=== PATIENT | male | born 1950 | race Caucasian/White ===

== ENCOUNTER 2021-06-12 14:29 | Emergency (ER) | payer MEDICARE ==
[~2021-06-12] VITALS: Ht 185.4 cm; Wt 95.5 kg
[2021-06-12 14:31] VITALS: TEMP 97.6
[2021-06-12 16:23] VITALS: BP 153/80; PULSE 70
== END 2021-06-12 16:23 | disposition short-term general hospital (02) ==
LOC: COL.ER 14:29
DX: S02.91XA Unspecified fracture of skull, initial encounter for closed fracture (principal); S06.6X1A Traumatic subarachnoid hemorrhage with loss of consciousness of 30 minutes or less, initial encounter; S06.5X1A Traumatic subdural hemorrhage with loss of consciousness of 30 minutes or less, initial encounter; Z20.822 Contact with and (suspected) exposure to COVID-19; W19.XXXA Unspecified fall, initial encounter; Y93.67 Activity, basketball
CPT/HCPCS: J1953; J2405; J3010; J7050

== ENCOUNTER → 2023-01-10 | Outpatient (CLI) | payer MEDICARE ==
[~2023-01-10] MED LIST: B-12 500 MCG PO; GLUCOPHAGE1000 MG PO; IMDUR 60MG60 MG/TAB PO; KEPPRA1000 MG PO; LANTUS100 U/ML SQ; LEXAPRO 10MG10 MG PO; LIPITOR 40MG TA40 MG PO; NITROSTAT0.4 MG/TAB SL; PROTONIX 40MG T40 MG PO; REMERON 15M15 MG/TA1 PO; SYNTHROID0.05 MG/TA PO; TOPROL XL 25MG25 MG PO
== END ==
LOC: DIA.ED 10:32
DX: E11.59 Type 2 diabetes mellitus with other circulatory complications (principal); Z79.4 Long term (current) use of insulin; I10 Essential (primary) hypertension; E78.5 Hyperlipidemia, unspecified
CPT/HCPCS: G0108

== ENCOUNTER 2023-02-23 13:04 | Outpatient (RCR) | payer MEDICARE | END 2023-02-24 | disposition home or self-care (01) | LOC: COL.CR | DX: Z48.812 Encounter for surgical aftercare following surgery on the circulatory system (principal); Z98.61 Coronary angioplasty status ==

== ENCOUNTER 2023-03-18 12:01 | Outpatient (RCR) | payer MEDICARE | END 2023-03-27 | disposition home or self-care (01) | LOC: COL.CR | DX: Z48.812 Encounter for surgical aftercare following surgery on the circulatory system (principal); Z98.61 Coronary angioplasty status ==

== ENCOUNTER 2023-03-30 15:34 | Outpatient (RCR) | payer MEDICARE | END 2023-04-01 15:05 | disposition still patient (30) | LOC: COL.CR 15:34 | DX: Z48.812 Encounter for surgical aftercare following surgery on the circulatory system (principal); Z98.61 Coronary angioplasty status ==

== ENCOUNTER 2023-11-21 08:33 | Day surgery (SDC) | payer MEDICARE ==
[~2023-11-21] VITALS: Ht 185.4 cm; Wt 86.2 kg
[~2023-11-21 08:33] MED LIST changes: +LR 1,000 ML IV SCH; +Ondansetron 4 MG/2 ML VIAL IV PRN
[2023-11-21 08:59] VITALS: BP 129/83; PULSE 67; TEMP 97.8
[2023-11-21] MEDS ORDERED: VITAMIN D 50,1.25 MG PO (09:04)
[2023-11-21] MEDS ORDERED: ARICEPT10 MG PO (09:06)
[2023-11-21] MEDS ORDERED: OZEMPIC0.25 MG/02 SQ (09:07)
[2023-11-21] MEDS ORDERED: PLAVIX 75MG TAB75 MG PO (09:08)
[2023-11-21] MEDS ORDERED: LOPRESSOR 225 MG/TAB PO (09:09)
[2023-11-21] MEDS ORDERED: PEPCID AC 10MG10 MG PO (09:10)
[2023-11-21] MEDS ORDERED: ASPIRIN 81M81 MG/TA2 PO (09:11)
[2023-11-21] MEDS ORDERED: FIASP 100100 UNIT/2 SQ (09:13)
[2023-11-21 10:25] VITALS: BP 124/68; PULSE 81
[2023-11-21 10:40] VITALS: BP 125/70; PULSE 80
[2023-11-21 10:55] VITALS: BP 122/70; PULSE 82
--- NOTE | 2023-11-21 14:56 | NUR ---
1025 PATIENT RETURNS [place] [facility] [place]IA CART. PT AWAKE AND ALERT. RESPIRATIONS UNLABORED. AMBULATED TO RECLINER CHAIR WITH 2:1 SBA. PT DENIES NAUSEA OR ABDOMINAL PAIN. HOOKED UP TO MONITOR AND VS OBTAINED. CALL LIGHT AT SIDE AND PRESENT. 1030 PATIENT REFUSED SNACK AND DRINK. 1045 DR. PARK IN ROOM SPEAKING WITH PATIENT. 1100 D/C INSTRUCTIONS REVIEWED WITH PATIENT. PT VERBALIZED UNDERSTANDING AND A COPY OF INSTRUCTIONS PROVIDED IN D/C FOLDER. 1110 PATIENT DRESSES SELF. 1115 PATIENT DISCHARGED FROM UNIT VIA W/C TO A PERSONAL VEHICLE. PT LEFT HOSPITAL IN STABLE CONDITION.
== END 2023-11-21 11:15 | disposition home or self-care (01) ==
LOC: SDCO 08:33
DX: K22.70 Barrett's esophagus without dysplasia (principal); K44.9 Diaphragmatic hernia without obstruction or gangrene; K31.84 Gastroparesis; K31.89 Other diseases of stomach and duodenum; K21.9 Gastro-esophageal reflux disease without esophagitis; Z86.73 Personal history of transient ischemic attack (TIA), and cerebral infarction without residual deficits; Z85.828 Personal history of other malignant neoplasm of skin; Z86.718 Personal history of other venous thrombosis and embolism; Z87.11 Personal history of peptic ulcer disease
CPT/HCPCS: J2704; J7120